=== PATIENT | female | born 1965 | race African-American/Black ===

== ENCOUNTER → 2023-12-21 | Day surgery (SDC) | payer BC ==
[~2023-12-21] MED LIST: ASPIRIN81 MG PO; ATENOLOL50 MG PO; EPHEDRINE SULFATE INJ 50 MG/ML VIAL ONE; LIDOCAINE HCL 2% LOCAL INJ 5 ML SDV VIAL INJ ONE; MULTIVITAMINS1 EAC4 PO; PROPOFOL IV EMULSION 10 MG/ML 20 ML VIAL ONE; ROSUVASTATIN CA40 MG PO; VALSARTAN-HCTZ1 EAC2 PO
[2023-12-21] MEDS: LACTATED RINGER'S 1,000 ML ONE (07:03)
[2023-12-21 07:19] VITALS: TEMP 97.2
[2023-12-21 07:50] VITALS: BP 122/84; PULSE 81; RESP 16; O2SAT 99
== END | disposition home or self-care (01) ==
LOC: OR 06:00
PROVIDERS: ATTEND Internal Medicine Gastroenterology
DX: Z12.11 Encounter for screening for malignant neoplasm of colon (principal); D12.2 Benign neoplasm of ascending colon; K57.30 Diverticulosis of large intestine without perforation or abscess without bleeding; Z71.3 Dietary counseling and surveillance; Z78.9 Other specified health status; I10 Essential (primary) hypertension; E78.5 Hyperlipidemia, unspecified; E66.01 Morbid (severe) obesity due to excess calories; Z01.810 Encounter for preprocedural cardiovascular examination; Z79.1 Long term (current) use of non-steroidal anti-inflammatories (NSAID); Z79.82 Long term (current) use of aspirin; Z79.899 Other long term (current) drug therapy; Z68.31 Body mass index [BMI] 31.0-31.9, adult
CPT/HCPCS: 45385; 88305; 93005; J7121; J2003